=== PATIENT | male | born 1990 | race African-American/Black ===

== ENCOUNTER 2017-05-30 17:58 | Emergency (ER) | payer SELFPAY ==
[~2017-05-30] VITALS: Ht 175.3 cm; Wt 70.0 kg
[2017-05-30 18:00] VITALS: BP 141/85; PULSE 89; RESP 17; TEMP 98.5; O2SAT 100
--- NOTE | 2017-05-30 18:10 | PD ---
Physical Exam Date Seen by Provider: May 30, 2017 Time Seen by Provider: 18:07 Narrative 27 YOBM C/O PAIN IN HIS PENIS AND RECTAL AREA WELL HIS LOWER ABD. FOR 1-2 WEEKS. NO D/C .NO F/C. NL APPETITE VS NOTED WAITING FOR BED PLACEMENT Data Data Last Documented VS Vital Signs Date Time Temp Pulse Resp B/P (MAP) Pulse Ox O2 Delivery O2 Flow Rate FiO2 05/30/17 18:00 98.5 89 17 141/85 (103) 100 Room Air [facility] Medical Record Reviewed: No Supervised Visit with OPAL: Yes Real Nguyen May 30, 2017 18:09
[2017-05-30 19:45] LABS: BLOOD, URINE NEG (NEG); COMMENT (UR) CULT NOT INDICATED; CULTURE IF INDICATED CULT NOT INDICATED; GLUCOSE,URINE NEG (NEG); KETONE, URINE NEG (NEG); MUCUS URINE FEW /lpf (OCC); NITRITE,URINE NEG (NEG); SQUAMOUS EPITHELIAL CELL URINE <1 /hpf (0-5); URINE COLOR YELLOW (YELLW/STRAW)
[2017-05-30] MEDS ORDERED: LIDOCAINE HCL 1% 50 ML VIAL XX ONE (20:30)
[2017-05-30] MEDS ORDERED: AZITHROMYCIN PWD FOR SUSP 1 GM PACKET PO ONE (20:30)
[2017-05-30] MEDS ORDERED: cefTRIAXone 250 MG VIAL IM ONE (20:30)
[2017-05-30] MEDS ORDERED: DOCUSATE SODIUM 100 MG CAP PO ONE (20:30)
[2017-05-30] MEDS ORDERED: COLA100C PO (20:32)
--- NOTE | 2017-05-30 20:38 | PD ---
HPI Chief Complaint: Complaint Time Seen by Provider: 20:31 Travel History International Travel<30 days: No Contact w/Intl Traveler<30days: No Traveled to known affect area: No History of Present Illness HPI This is a 27-year-old male with no significant past medical history presents for evaluation. he reports over the past 1-2 weeks he has had some rectal pain when straining to use the bathroom. He reports that he's been somewhat constipated. He reports that occasionally he sees a little bit of blood streaks in his stool. He also reports an occasional intermittent stinging sensation in the shaft of the penis. This seems to come on spontaneously and last for several minutes at a time and then resolved spontaneously. He denies any urethral discharge, dysuria, flank pain, fevers or chills, testicular or scrotal pain, nausea or vomiting. He denies any rectal or urethral foreign bodies. He does report that he is sexually active, he has had one new female partner in the past month. He has no other complaints at this time. [facility] Past Medical History Medical History: Denies Significant Hx Social History Alcohol Use: Yes Tobacco Use: No Substance Use: No Allergies-Medications (Allergen,Severity, Reaction): Coded Allergies: No Known Allergies (Unverified , 05/30/17) Reported Meds & Prescriptions Reported Meds & Active Scripts Active Colace (Docusate Sodium) 100 Mg Capsule 1 Cap PO BID 10 Days Review of Systems Except as stated in HPI: all other systems reviewed are Neg Physical Exam Narrative GENERAL: Well-developed well-nourished male in no acute distress SKIN: Warm and dry. HEAD: Atraumatic. Normocephalic. EYES: Pupils equal and round. No scleral icterus. No injection or drainage. ENT: No nasal bleeding or discharge. Mucous membranes pink and moist. NECK: Trachea midline. No JVD. CARDIOVASCULAR: Regular rate and rhythm. No murmur appreciated. RESPIRATORY: No accessory muscle use. Clear to auscultation. Breath sounds equal bilaterally. GASTROINTESTINAL: Abdomen soft, non-tender, nondistended. Hepatic and splenic margins not palpable. Rectal examination reveals no evidence of perirectal abscess, no obvious fissure or external hemorrhoid. No palpable internal hemorrhoid. No pain with palpation of the rectum, no tenderness to palpation to the prostate, negative Hemoccult. : Normal-appearing scrotum and penile shaft. There is no urethral discharge. There is no tenderness to palpation of the scrotum or penis. No skin lesions. No inguinal hernia palpable. MUSCULOSKELETAL: No obvious deformities. No clubbing. No cyanosis. No edema. NEUROLOGICAL: Awake and alert. No obvious cranial nerve deficits. Motor grossly within normal limits. Normal speech. Data Data Last Documented VS Vital Signs Date Time Temp Pulse Resp B/P (MAP) Pulse Ox O2 Delivery O2 Flow Rate FiO2 05/30/17 18:00 98.5 89 17 141/85 (103) 100 Room Air Orders Orders Urinalysis - C+S If Indicated (05/30/17 19:16) Azithromycin Powd Pack (Zithromax Powd P (05/30/17 20:30) Ceftriaxone Inj (Rocephin Inj) (05/30/17 20:30) Lidocaine 1% Inj (50 Ml) (Xylocaine 1% I (05/30/17 20:30) Docusate Sodium (Colace) (05/30/17 20:30) Gc And Chlamydia Pcr (05/30/17 20:31) Labs Laboratory Tests Test 05/30/17 19:10 Urine Color YELLOW Urine Turbidity CLEAR Urine pH 6.0 Urine Specific [place] 1.031 Urine Protein TRACE mg/dL Urine Glucose (UA) NEG mg/dL Urine Ketones NEG mg/dL Urine Occult Blood NEG Urine Nitrite NEG Urine Bilirubin NEG Urine Urobilinogen 2.0 MG/DL Urine Leukocyte Esterase NEG Urine RBC LESS THAN 1 /hpf Urine WBC LESS THAN 1 /hpf Urine Squamous Epithelial Cells <1 /hpf Urine Mucus FEW /lpf Microscopic Urinalysis Comment CULT NOT INDICATED MDM Medical Decision Making Medical Screen Exam Complete: Yes Emergency Medical Condition: Yes Medical Record Reviewed: Yes Differential Diagnosis Constipation, external hemorrhoid, anal fissure, prostatitis, urethritis, malignancy, priapism Narrative Course 27-year-old male with some constipation and rectal pain when straining his the bathroom. Occasional streaks of blood in the stool. He also reports an occasional intermittent stinging sensation in the penile shaft with no other symptoms. Physical examination is unremarkable. and rectal examination are both unremarkable. He has negative Hemoccult. Based on his symptoms I would suspect constipation with likely a tiny anal fissure or external hemorrhoid that is not visible on this examination. His prostate is nontender and nonenlarged. A urinalysis performed in triage is unremarkable. He has no urethral discharge. He does have a new sexual partner. A GC and gonorrhea probe have been added on and the patient will be empirically treated with azithromycin and Rocephin pending PCR results. He is being discharged with Colace. Recommended follow-up with primary care physician. [facility] Internal Pos. & Neg. Controls: Passed Fecal Specimen Occult Blood: Negative Diagnosis Primary Impression: Constipation Qualified Codes: K59.00 - Constipation, unspecified Additional Impressions: Rectal pain Penile pain Additional Instructions: Use barrier contraception. Stay well hydrated. Increase fiber intake. Medication as needed. Follow-up with primary care physician. Return for any acutely new or worsening symptoms. Med/Other Pt SpecificInfo: Prescription(s) given Scripts Docusate Sodium (Colace) 100 Mg Capsule 1 CAP PO BID for 10 Days Prov: Nagi Pink MD 05/30/17 Disposition: 01 DISCHARGE HOME Condition: Stable Erasmo Watters May 30, 2017 20:38
[2017-05-30 23:04] LABS: CHLAMYDIA PCR NOT DETECTED (NOT DETECT); NEISSERIA PCR NOT DETECTED (NOT DETECT)
== END 2017-05-30 21:05 | disposition home or self-care (01) ==
LOC: EDBD 17:58 → NEPD 17:58
DX: K59.00 Constipation, unspecified (principal); K62.89 Other specified diseases of anus and rectum; N48.89 Other specified disorders of penis
CPT/HCPCS: 81001; 87491; 87591; 96372; 99284; J0696

== ENCOUNTER 2017-12-12 20:08 | Emergency (ER) | payer SELFPAY ==
[~2017-12-12 20:08] MED LIST: COLA100C5 PO
[2017-12-12 20:29] VITALS: BP 152/78; PULSE 88; RESP 16; TEMP 97.6; O2SAT 100
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
[2017-12-12] MEDS ORDERED: KETO10 PO (23:25)
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
== END 2017-12-12 23:39 | disposition home or self-care (01) ==
LOC: NEPD 20:08
DX: M79.89 Other specified soft tissue disorders (principal)
CPT/HCPCS: 73110; 99283